=== PATIENT | female | born 1980 | race Caucasian/White ===

== ENCOUNTER 2018-11-16 06:27 | Day surgery (SDC) | payer OTHER ==
[2018-11-13 14:17] LABS: Urine Appearance CLEAR; Urine Bilirubin NEGATIVE (NEG); Urine Blood NEGATIVE (NEG); Urine Color YELLOW; Urine Glucose NEGATIVE (NEG); Urine Protein NEGATIVE (NEG); Urine pH 6.5 (5.0-7.0)
[2018-11-13 14:19] LABS: Urine Microscopic Reflex NO UMIC
[2018-11-13 14:21] LABS: Absolute Monocytes 0.4 K/uL (0.1-1.3); Absolute Neutrophil 5.1 K/uL (1.8-8.0); Basophils % 0.8 % (0-1.3); Hematocrit 43.7 % (36.0-45.0); Lymphocytes % 25.4 % (15.3-44.8); MPV 7.9 fL (7.6-11.3); Monocytes % 4.4 % (3.3-12.3); RBC Red Blood Cell Count 4.77 M/uL (3.86-4.86)
[~2018-11-16 06:27] MED LIST: CEFAZOLIN 3 GM in NA CHLORIDE 0.9% 100 ML IM SCH
[2018-11-16 06:47] LABS: Specific Gravity 1.025 (1.005-1.030)
[2018-11-16] MEDS ORDERED: PROPOFOL 200 MG/20 ML VIAL IV ONE (07:08)
[2018-11-16] MEDS ORDERED: MIDAZOLAM HCL 2 MG/2 ML INJ ONE (07:09)
[2018-11-16] MEDS ORDERED: LIDOCAINE 2% MPF 5 ML VIAL ONE (07:09)
[2018-11-16] MEDS ORDERED: ROCURONIUM 50 MG/5 ML VIAL IV ONE ×2 (07:09→09:27)
[2018-11-16] MEDS ORDERED: FENTANYL CITR 100 MCG/2 ML ONE (07:09)
[2018-11-16] MEDS ORDERED: GLYCOPYRROLATE 0.2 MG/ML SYR ONE (07:09)
[2018-11-16] MEDS ORDERED: Ringers Lactate 1,000 ML IV ONE (07:10)
[2018-11-16] MEDS ORDERED: ONDANSETRON 4 MG/2 ML VIAL ONE ×2 (07:10→13:13)
[2018-11-16] MEDS ORDERED: NEOSTIGMINE 1 MG/ML -10 ML VIAL ONE (07:10)
[2018-11-16] MEDS ORDERED: SCOPOLAMINE HYDROBROMIDE PATCH TD ONE (07:10)
[2018-11-16] MEDS ORDERED: DEXAMETHASONE 4 MG/ML VIAL ONE (07:13)
[2018-11-16] MEDS ORDERED: NITROGLYCERIN 1 GM PKT TD ONE (07:30)
[2018-11-16] MEDS: NA CHLORIDE 0.9% 1,000 ML ONE ×2 (07:41→07:50)
[2018-11-16] MEDS ORDERED: FENTANYL CITR 250 MCG/5 ML ONE (08:00)
[2018-11-16] MEDS ORDERED: NA CHLORIDE 0.9% 1,000 ML ONE ×2 (08:41→10:26)
[2018-11-16] MEDS ORDERED: MEPERIDINE HCL 25 MG/0.5 ML IM PRN (10:22)
[2018-11-16] MEDS ORDERED: PROMETHAZINE 25 MG/ML VIAL IV PRN (10:22)
[2018-11-16] MEDS ORDERED: HYDROCODONE/APAP 5/325 MG TAB PO PRN (10:22)
[2018-11-16] MEDS ORDERED: IBUPROFEN 200 MG TAB PO PRN (10:22)
[2018-11-16] MEDS ORDERED: KETOROLAC 30 MG/ML INJ ONE (10:28)
--- NOTE | 2018-11-16 10:29 | P.BOP ---
Preoperative diagnosis: AUB -EIN Postoperative diagnosis: same and endometriosis Primary procedure: TLH BSO endometriosis excision and Cysto Escrow Officer: Barb Rojas Estimated blood loss: min Specimen: washings, uterus tubes and ovaries, Findings: left uterosacral endometriosis Anesthesia: General Complications: None Transferred to: Recovery Room Condition: Good
[2018-11-16] MEDS ORDERED: MORPHINE 10 MG/ML VIAL ONE (10:36)
[2018-11-16] MEDS: HYDROMORPHONE HCL 2 MG/ML inj ONE ×2 (11:18→11:23)
[2018-11-16] MEDS ORDERED: ALBUTEROL 2.5 MG/3 ML NEB SOL ONE (12:07)
[2018-11-16] MEDS ORDERED: IBUPROFEN 200 MG TAB PO ONE (13:13)
--- NOTE | 2018-11-16 22:05 | OP ---
Date of Procedure: 11/16/2018 Surgeon: Stephanie Anders MD Vice President Of Brand Management: Barb Rojas. 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 Postoperative Diagnosis: Menorrhagia from endometrial hyperplasia with atypia (endometrial intraepit helial neoplasia) and endometriosis. Procedures Performed: Total laparoscopic hysterectomy, bilateral salpingo-oophorectomy, pelvic washi ngs, endometriosis excision, and cystoscopy. Estimated Blood Loss: Minimal. Specimens: Uterus, bilateral tubes, ovaries, pelvic washings. Complications: No complications. Drains: None. Condition: The patient's condition is stable. Findings: Bilateral tubes had hydrosalpinges. There was endometriosis in the left uterosacral ligam ent area and the left lateral wall. All this endometriosis was excised and retracted medially and in cluded along with the uterine specimen. Indications: The patient is a 38-year-old, presented with heavy bleeding. She had an ultrasound, th en endometrial sampling showed hyperplasia with atypia. This is a patient who had heavy bleeding. T he biopsy showed no malignancy or atypia in the past and so she was given a Mirena. After 2 years of using the Mirena, she had abnormal bleeding and on reevaluation and removal of the Mirena, the sampl ing showed atypia. So at this point, the patient was counseled about her alternatives including anot her Mirena, high dose Megace, hysterectomy and she preferred to proceed with a definitive treatment w ith hysterectomy. Talked about the benefits and risks of oophorectomy at this time and proceeded to consent her for a bilateral oophorectomy as well and pelvic washings. Description Of Procedure: After informed consent was verified, the patient was brought to the OR and 3 g of Ancef was given. She was placed on the operating table in a supine fashion. After general a nesthesia was given, she was placed in a dorsal lithotomy position using Ap stirrups. Pelvic exam was performed. Uterus anteflexed, about 8 to 10-week size. No adnexal masses were noted. Abdomen, vulva, vagina, and perineum were prepped and draped in a sterile fashion. Kurtz was placed to drain the bladder and attached to cysto tubing to a bag to retrograde fill it. Speculum placed to expose the cervix, anterior lip grasped with 2 Allis clamps. Then large VCare was placed over the uterus an d fixed in place. This area was then draped. A 1 cm infraumbilical incision was made with a scalpel using the open laparoscopy technique. The fas gavin was incised, tagged on both sides, S retractors placed. Peritoneum entered bluntly and then Luis A on was introduced into the peritoneal cavity and insufflated. Upper abdominal surfaces, liver, gallb ladder unremarkable. 10-mm suprapubic and 5-mm left lower quadrant ports were placed under direct vi jony later on with a 3-0 Monocryl suture. The epiploica of the sigmoid colon were sutured and this w as held on the retractor through the left upper quadrant using a Gustavo-Joy needle to move the b owel out of the cul-de-sac. I went on to inspect the bladder. There was a small pucker right above the level of the bladder, mos t likely a scar from her tubal ligation. Now, I went cephalad to this in the midline to make my 10-m m incision and a 10-mm trocar was placed above here. Once the entire anterior and posterior aspects of the uterus were inspected, endometriosis was identi fied and plan was to remove the endometriosis and include it with the uterine specimen. There were b ilateral hydrosalpinges with hematosalpinx on the right, very obvious, possibly endometriosis as well or endosalpingiosis. Ovaries appeared to be unremarkable, however, plan was to remove them. The pe lvic washings were first performed, collected and sent out. Then bipolar LigaSure was used to take d own the posterior broad ligament inferior to the utero-ovarian ligament. Dissection was performed al l the way down to the level of the endometriosis. Then, dissection was performed to separate the [place] r[place] artery from the peritoneum and the endometriotic implants. The peritoneum was dissected lateral ly to gain good lateral access. Then, the ureter was dissected laterally as well away from the perit oneum and the entire endometriosis implants were detached on the lateral aspect and included onto the medial side. The posterior peritoneum over the left uterosacral and the posterior cul-de-sac perito neum were all incised with the help of the LigaSure and this finished the posterior dissection on the left side. Then the utero-ovarian ligaments, mesosalpinx, tube, left round ligament were all taken down. Then the anterior broad ligament taken down. Bladder flap raised all the way to the opposite round ligament. Then, the vessels were all skeletonized in the broad ligament and then this dissecti on was left alone. The vesicovaginal space was entered on the left side. On the opposite side, jewell lar dissection was performed to take down the mesosalpinx, tube, utero-ovarian ligament, then the rou nd ligament. Then, both the posterior broad ligament was dissected to the right uterosacral and the anterior broad ligament dissected to connect the flap from the opposite side. Once the broad ligamen t was taken down then the vessels were skeletonized and the precervical fascia was exposed with the h elp of the monopolar needle. After getting in the vesicovaginal space and dissecting the bladder inf eriorly, the vessels were taken down on the right side and then on the left side. The cardinal ligam ents were taken down as well on both sides. Then a circumferential colpotomy performed with the mono polar hook blade and the specimen detached and pulled out through the vagina. It was a tight fit, ho wever, the uterus was able to be squeezed out. It had a lot of blood in it. After thorough suction and irrigation were performed, the left tube and ovary were removed with the h elp of the LigaSure. On the right after removal of the right tube and ovary, there was bleeding from the pedicle of the oophorectomy. This was cauterized again by picking up with graspers and the Liga Sure. Once this was done, all the specimens were retrieved through the vagina, 1 ovary in the bag, 1 just plain normally. After all the specimens were removed, then the vaginal cuff was thoroughly irr igated and suctioned. Bipolar was used on the posterior cuff and at the edges of the right uterosacr al detachment. Then the entire cuff was closed with 0 Vicryl interrupted sutures x5, 2 simples on sayda th ends, the 1 on the left side was tied outside the angle and all the other 3 in a buried figure-of- eight fashion. Trocars were removed. Thorough irrigation, suction performed. No evidence of electr ical, mechanical, or thermal injury to the ureters. The fascia at the umbilicus was closed with 0 Vi cryl in [id number] fashion. All the other incisions closed with 4-0 interrupted Vicryl sutures. Then, Kurtz removed. VCare bulb removed and then cystoscopy was performed with a 17-Citizen Of [place] sheath, 30-degree lens. Both ureteric orifices were well visualized and there were strong jets of urine fro m both. No evidence of any trauma to the bladder. There was a small pucker on the very top of the d ome of the bladder, most likely from the scar that probably attached to the previous tubal ligation s car area, but no evidence of any trauma into the bladder itself or scar into it. The bladder was yenifer ined, vagina was cleaned up after the scope was removed. Instrument, needle, and sponge counts were done and were correct at the end of the case. The patient tolerated the procedure well. ALBERT Voice ID: [id number] Report ID: [id number]
== END 2018-11-16 13:50 | disposition home or self-care (01) ==
LOC: OR 06:27
PROVIDERS: ATTEND Obstetrics & Gynecology
PROC: 0UT24ZZ Resection of Bilateral Ovaries, Percutaneous Endoscopic Approach (ICD-10-PCS; 2018-11-16)
PROC: 0UT74ZZ Resection of Bilateral Fallopian Tubes, Percutaneous Endoscopic Approach (ICD-10-PCS; 2018-11-16)
PROC: 0DBW4ZZ Excision of Peritoneum, Percutaneous Endoscopic Approach (ICD-10-PCS; 2018-11-16)
PROC: 0UT94ZZ Resection of Uterus, Percutaneous Endoscopic Approach (ICD-10-PCS; principal; 2018-11-16 07:30)
DX: D25.9 Leiomyoma of uterus, unspecified (principal); N85.02 Endometrial intraepithelial neoplasia [EIN]; N83.8 Other noninflammatory disorders of ovary, fallopian tube and broad ligament; N70.11 Chronic salpingitis; N83.02 Follicular cyst of left ovary; N83.01 Follicular cyst of right ovary; E66.01 Morbid (severe) obesity due to excess calories; Z68.42 Body mass index [BMI] 45.0-49.9, adult
CPT/HCPCS: 36415; 81003; 81025; 85025; 86850; 86900; 86901; 88108; 88305; 88309; J0690; J1170; J2250; J2405; J2704; J2710; J3010; J7030